=== PATIENT | female | born 1995 | race Hispanic/Latino ===

== ENCOUNTER 2022-11-12 13:18 | Emergency (ER) | payer BC ==
[2022-11-12] MEDS ORDERED: Lidocaine 1% w/Epinephrine 1:100K 20 ML VIAL ONE ×2 (13:48→13:49)
[2022-11-12] MEDS ORDERED: Cephalexin 500 MG CAP ONE (13:48)
[2022-11-12] MEDS ORDERED: AMOXicillin 250 MG CAP ONE ×2 (13:48)
[2022-11-12] MEDS ORDERED: Bacitracin 1 PK ONE (13:48)
== END 2022-11-12 15:50 | disposition home or self-care (01) ==
LOC: MADERS 13:18
DX: S81.811A Laceration without foreign body, right lower leg, initial encounter (principal); W26.9XXA Contact with unspecified sharp object(s), initial encounter
CPT/HCPCS: 12002